=== PATIENT | female | born 1990 | race Two or more races ===

== ENCOUNTER 2023-05-06 04:38 | Emergency (ER) | payer BC ==
[~2023-05-06] VITALS: Ht 154.9 cm; Wt 79.4 kg
[2023-05-06] MEDS ORDERED: ALBENDAZOLE200 MG PO (06:24)
[2023-05-06] MEDS ORDERED: EMVERM100 MG PO (06:29)
== END 2023-05-06 06:33 ==
LOC: ER 04:38
DX: B80 Enterobiasis (principal)